=== PATIENT | female | born 1955 | race African-American/Black ===

== ENCOUNTER 2017-03-12 21:22 | Emergency (ER) | payer OTHER ==
[2017-03-12 21:34] VITALS: TEMP 98.1; BMI 25.8
[2017-03-12] MEDS ORDERED: morphine CARPU-JECT 4 MG/1 ML DISP.SYRIN IVPUSH ONE (21:52)
[2017-03-12] MEDS ORDERED: ASPIRIN 81 MG CHEWABLE TABLETS PO ONE (22:01)
[2017-03-12] MEDS ORDERED: morphine CARPU-JECT 4 MG/1 ML DISP.SYRIN ONE (22:14)
[2017-03-12] MEDS ORDERED: ASPIRIN 81 MG CHEWABLE TABLETS ONE (22:16)
[2017-03-12 22:21] LABS: BASOPHIL 2.3 % (0-2.0); MCH 28.2 pg (25.7-33.7); MCHC 33.6 g/dl (32.0-36.0); MEAN CELL VOLUME 83.9 fl (80-96); MEAN PLT VOLUME 9.3 fl (7.5-11.1); NEUTROPHILS 51.6 % (42.8-82.8); PLATELET COUNT 331 K/MM3 (134-434); RDW 13.7 % (11.6-15.6); WHITE BLOOD COUNT 15.5 K/mm3 (4.0-10.0)
[2017-03-12] MEDS ORDERED: METOPROLOL TARTRATE 50 MG TABLET (FP) PO ONE (22:33)
[2017-03-12 22:34] LABS: INR 1.04 (0.82-1.09); PROTHROMBIN TIME (PATIENT) 11.5 SEC (9.98-11.88)
--- NOTE | 2017-03-12 22:39 | PDOC ---
History of Present Illness - General Chief Complaint: Pain Stated Complaint: ABDOMINAL PAIN Time Seen by Provider: 03/12/17 21:37 History Source: Patient, Family Exam Limitations: No Limitations - History of Present Illness Initial Comments: 03/12/17 22:38 The patient is a 61F with a PMH HTN, DM, HLD with known gallstones who presents to the ER with epigastric pain. She states that the pain started earlier today. 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 The pain feels like her gallstone pain but describes it as epigastric pain which radiates to her L shoulder and down her arm. She describes it as stabbing, pressure like pain. Meds: recently changed to metoprolol 50 BID Allergies: none Social: does not smoke, drink, or use drugs Surg: stent placed in , most recent RI was ballooned. Past History - Past Medical History Allergies/Adverse Reactions: Allergies Allergy/AdvReac Type Severity Reaction Status Date / Time No Known Allergies Allergy Unverified 03/12/17 21:33 Home Medications: Ambulatory Orders Aspirin [Aspirin Ec] 81 mg PO DAILY tablet 03/02/17 Ciprofloxacin [Cipro (Restricted To Id)] 500 mg PO Q12H #14 tablet 03/13/17 Metronidazole [Flagyl -] 500 mg PO DAILY #7 tablet 03/13/17 Oxycodone HCl/Acetaminophen [Percocet 5-325 mg Tablet] 1 tab PO Q6H #12 tablet MDD 4 pills 03/13/17 Cardiac Disorders: Yes Diabetes: Yes HTN: Yes Hypercholesterolemia: Yes - Surgical History Cardiac Surgery: Yes (stent) - Psycho/Social/Smoking Cessation Hx Suicidal Ideation: No Smoking History: Never smoked Review of Systems - Review of Systems Constitutional: No: Chills, Fever, Night Sweats Respiratory: Yes: Shortness of Breath (due to pain). No: Cough Cardiac (ROS): Yes: Chest Pain ABD/GI: Yes: Diarrhea, Nausea. No: Constipated, Vomiting : No: Burning, Dysuria, Discharge Neurological: No: Headache, Numbness, Tingling, Weakness *Physical Exam - Vital Signs Last Vital Signs Temp Pulse Resp BP Pulse Ox 98.1 F 78 18 180/100 99 03/12/17 21:24 03/12/17 21:24 03/12/17 21:24 03/12/17 21:24 03/12/17 21:24 - Physical Exam General Appearance: Yes: Nourished, Appropriately Dressed, Mild Distress HEENT: positive: Normal Voice Respiratory/Chest: positive: Lungs Clear, Normal Breath Sounds. negative: Chest Tender, Respiratory Distress, Accessory Muscle Use Cardiovascular: positive: Regular Rhythm, Regular Rate, S1, S2 Gastrointestinal/Abdominal: positive: Tender, Soft, Tenderness (in epigastrium) Integumentary: positive: Dry, Warm Neurologic: positive: Fully Oriented, Alert, Normal Mood/Affect Heart Score/ECG Review - ECG Impressions Normal ECG: Yes ED Treatment Course - LABORATORY CBC & Chemistry Diagram: 03/12/17 22:05 03/12/17 22:05 - ADDITIONAL ORDERS Additional order review: 03/12/17 22:05 RBC 5.17 MCV 83.9 MCHC 33.6 RDW 13.7 MPV 9.3 Neutrophils % 51.6 Lymphocytes % 29.3 Monocytes % 4.8 Eosinophils % 12.0 H Basophils % 2.3 H - RADIOLOGY Radiology Studies Ordered: Category Date Time Status CHEST PA & LAT [RAD] Stat Radiology 03/12/17 22:01 Ordered - Medications Given in the ED: ED Medications Discontinued Medications Generic Name Dose Route Start Last Admin Trade Name Sameer PRN Reason Stop Dose Admin Aspirin 162 mg 03/12/17 22:01 03/12/17 22:00 Asa - PO 03/12/17 22:02 162 mg ONCE ONE Administration Morphine Sulfate 4 mg 03/12/17 21:52 03/12/17 22:00 Morphine Injection - IVPUSH 03/12/17 21:53 4 mg ONCE ONE Administration Medical Decision Making - Medical Decision Making 03/12/17 22:45 Patient is a 61F with a PMH of DM, HTN, HLD who presents with epigastric pain. On my differential is ACS, cholecystitis, choledocholithiasis. I have ordered a chest pain set and labs to r/o infection. Patient has an appointment to see her surgeon Sunday. I will update the patient as results come in. 03/13/17 01:06 CXR is read as a normal chest. Patient has a leukocytosis. I have ordered cipro/flagyl outpatient. I have addressed the patient's pain needs. I will start 1 dose of levaquin in the ED. *DC/Admit/Observation/Transfer Diagnosis at time of Disposition: Epigastric pain, Atypical chest pain Diagnosis at time of Disposition: (Ruled Out): Cholelithiasis - Discharge Dispostion Condition at time of disposition: Stable Admit: No - Prescriptions Prescriptions: Ciprofloxacin [Cipro (Restricted To Id)] 500 mg PO Q12H #14 tablet Metronidazole [Flagyl -] 500 mg PO DAILY #7 tablet Oxycodone HCl/Acetaminophen [Percocet 5-325 mg Tablet] 1 tab PO Q6H #12 tablet MDD 4 pills - Referrals Referrals: Khang Arrieta MD [Primary Care Provider] - - Patient Instructions Printed Discharge Instructions: Gallstones Additional Instructions: Please take prescriptions as prescribed. Please follow up with all appointments. Please return to the ER if symptoms persist, worsen, or if new symptoms arise. - Attestations Physician Attestion: 03/12/17 22:47 I, Dr. Clemente Luna, attest that this document has been prepared under my direction and personally reviewed by me in its entirety. I further attest, that it accurately reflects all work, treatment, procedures and medical decision -making performed by me.
[2017-03-12] MEDS ORDERED: METOPROLOL TARTRATE 50 MG TABLET (FP) ONE (22:41)
[2017-03-12 22:52] LABS: MAGNESIUM 1.7 mg/dL (1.8-2.4)
[2017-03-12 22:53] LABS: TROPONIN I < 0.02 ng/ml (0.00-0.05)
[2017-03-12 23:28] LABS: ALBUMIN 4.1 g/dl (3.4-5.0); ALK PHOS 99 U/L (45-117); ANION GAP 10 (8-16); BILIRUBIN,TOTAL 0.4 mg/dL (0.2-1.0); CALCIUM 10.2 mg/dL (8.5-10.1); CO2 26 mmol/L (21-32); CREATININE 0.9 mg/dL (0.55-1.02); GLUCOSE,RANDOM 161 mg/dL (74-106); SGOT/AST 20 U/L (15-37); SGPT/ALT 32 U/L (12-78); TOT PROT 7.7 g/dl (6.4-8.2)
[2017-03-13] MEDS ORDERED: PIPERACILLIN/TAZOB 3.375 GM/50 ML PRE-DOCKED IV ONE (00:24)
[2017-03-13] MEDS ORDERED: morphine CARPU-JECT 2 MG/1 ML DISP.SYRIN IVPUSH ONE (00:24)
[2017-03-13] MEDS ORDERED: LEVOFLOXACIN 500 MG TABLET (FP) PO ONE (01:09)
[2017-03-13] MEDS ORDERED: morphine CARPU-JECT 2 MG/1 ML DISP.SYRIN ONE (01:11)
[2017-03-13] MEDS ORDERED: LEVOFLOXACIN 500 MG TABLET (FP) ONE (01:12)
[2017-03-13 01:39] VITALS: BP 158/77; PULSE 64
--- NOTE | 2017-03-13 16:29 | EKG ---
Test Reason : Blood Pressure : / mmHG Vent. Rate : 077 BPM Atrial Rate : 077 BPM P-R Int : 170 ms QRS Dur : 074 ms QT Int : 386 ms P-R-T Axes : 052 037 030 degrees QTc Int : 436 ms NORMAL SINUS RHYTHM NORMAL ECG WHEN COMPARED WITH ECG OF 29-SEP-2008 18:35, NONSPECIFIC T WAVE ABNORMALITY NO LONGER EVIDENT IN ANTEROLATERAL LEADS BASELINE ARTIFACTS Confirmed by SUSAN AYALA MD ([id number]) on 03/13/2017 4:28:56 PM Referred By: Confirmed By:SUSAN AYALA MD
--- NOTE | 2017-03-13 17:16 | PDOC ---
Attending Attestation - Resident Resident Name: HeraclioClemente pichardo - HPI HPI: 03/13/17 17:12 61 yo female p/w epigastric pain . She has a h/o gallstones and has an appt with her surgeon this Sunday 0she stated she wanted her gallbladder put now. It was explained to her that we would assess her amd do appropriate w/u but it was unlikely she would have emergent cholecystectimy the evening she arrived - Physicial Exam PE: 03/13/17 17:16 wnwd 61 yo female with epigastric discomfort heent -wnl cvr -[id number] lungs- cta b/l abd -epigastric discomfort to deep palpation but no rebound or guarding ext from,no deformity neuro no groass focal deficits ,axox3 - Medical Decision Making 03/13/17 17:21 labs reviewed , leukocytosis,LFT not elevated,ekg nsr,no signs of ischemia and negative trop. CArdiac w/u done because 1 month ago she had nstemi -discussed options w pt, she wanted medications and d/c and would see her own surgeon on Sun
--- NOTE | 2017-03-14 12:49 | PDOC ---
Patient Follow-up (Call Back) - Post ED Follow - Up Condition at time of discharge: Stable Disposition at time of original discharge: HOME Reason for Call Back: Complaint/Condition F/U (prescriptions not received because residents JEFFRY was not recognized. Prescriptions resent under my JEFFRY .)
== END 2017-03-13 01:46 | disposition home or self-care (01) ==
LOC: JER 21:22
DX: R07.89 Other chest pain (principal); R10.13 Epigastric pain; I25.10 Atherosclerotic heart disease of native coronary artery without angina pectoris; I25.83 Coronary atherosclerosis due to lipid rich plaque; I25.82 Chronic total occlusion of coronary artery; I10 Essential (primary) hypertension; Z95.5 Presence of coronary angioplasty implant and graft; Z95.1 Presence of aortocoronary bypass graft
CPT/HCPCS: 36415; 71020-TC; 80053; 82550; 83605; 83690; 83735; 84484; 85025; 85610; 93005; 93010; 99284-25